=== PATIENT | male | born 1955 | race Caucasian/White ===

== ENCOUNTER 2020-08-21 00:41 | Outpatient (CLI) | payer BC, SELFPAY ==
[2020-08-21 18:51] LABS: SARS-CoV-2 RNA PCR Negative
== END 2020-08-21 00:42 | disposition home or self-care (01) ==
LOC: ANHCOVIDDT 00:41
PROVIDERS: PCP Internal Medicine; Visit Provider Internal Medicine Gastroenterology
DX: Z01.812 Encounter for preprocedural laboratory examination (principal); Z20.828 Contact with and (suspected) exposure to other viral communicable diseases
CPT/HCPCS: 87635; C9803; U0003

== ENCOUNTER 2020-08-24 01:18 | Day surgery (SDC) | payer BC, SELFPAY ==
[2020-08-16 10:50] VITALS: BMI 35.4
[2020-08-24 07:58] VITALS: BP 170/89; PULSE 71; RESP 22; TEMP 36.7; O2SAT 97
[2020-08-24] MEDS: LACTATED RINGERS 1,000 ML 150 ML IV CONT (08:12)
--- NOTE | 2020-08-24 08:34 | WPDGICN ---
Assessment and Plan Assessment and plan (1) History of colon polyps: Code(s): Z86.010 - Personal history of colonic polyps Status: Acute Assessment and Plan: Patient has a history of colon polyps in the past. Most recent exam in 2014 was unremarkable. Plan is for surveillance colonoscopy at this time. GI Consult Note Consult date/time: 08/24/20 08:34 HPI: Juan Carlos Jules is a 65 year old male Presents for follow-up colonoscopy. Patient has a history of colon polyps in the past. patient reports his current weight appetite bowel movements are normal. He denies abdominal pain. He has had no bleeding. Family history is significant for several family members with colon polyps. Review of Systems Review of Systems: All systems reviewed & are unremarkable except as noted in HPI and below PMFSH Social History Social History Smoking status: Never smoker Alcohol intake: current Substance use: never Substance use type: does not use Living arrangements: with family Spiritual care concerns: No Meds Home Medications and Allergies Home Medications Medication Instructions Recorded Confirmed Type ascorbic acid (vitamin C) 1 g PO DAILY 08/16/20 08/16/20 History carvedilol 25 mg PO BID 08/16/20 08/16/20 History coQ10 (ubiquinol) 200 mg PO DAILY 08/16/20 08/16/20 History furosemide 40 mg PO DAILY 08/16/20 08/16/20 History lisinopril 20 mg PO DAILY 08/16/20 08/16/20 History magnesium 200 mg PO DAILY 08/16/20 08/16/20 History minoxidil 10 mg PO DAILY 08/16/20 08/16/20 History pravastatin 40 mg PO HS 08/16/20 08/16/20 History psyllium husk [Metamucil] 1 g PO DAILY 08/16/20 08/16/20 History sertraline 50 mg PO DAILY 08/16/20 08/16/20 History zinc gluconate [Zinc-50] 50 mg PO DAILY 08/16/20 08/16/20 History Allergies Allergy/AdvReac Type Severity Reaction Status Date / Time No Known Allergies Allergy Verified 08/24/20 07:56 Vital Signs Vital Signs - 24 hr 08/24/20 07:58 Temperature 98.0 F Pulse Rate 71 Respiratory Rate 22 H Blood Pressure 170/89 H Pulse Oximetry 97 Exam Narrative: Exam Narrative: Physical exam reveals patient be alert. Vital signs stable. HEENT exam unremarkable. Lungs are clear to auscultation and percussion. Heart is without murmur or extra sounds. Abdominal exam bowel sounds are present soft nontender with no organomegaly. Digital external rectal exam is normal.
--- NOTE | 2020-08-24 09:00 | WPDANESEPPF ---
Anes - Initial Pre Proc Eval Procedure: Operation Date: 08/24/20 09:00 Proposed Procedures p Screening Colonoscopy - Hawk Rzivi MD Date/Time: 08/24/20 09:00 Surgeon: Hawk Rizvi MD Pre Op Diagnosis: Neoplasm Screening,Hx Of Colon Polyps Patient Data Age: 65 Gender: M Height: 5 ft 9 in Weight: 105.8 kg Last Vital Signs Temp 98.0 F 08/24/20 07:58 Pulse 71 08/24/20 07:58 Resp 22 H 08/24/20 07:58 BP 170/89 H 08/24/20 07:58 Pulse Ox 97 08/24/20 07:58 Allergies Allergy/AdvReac Type Severity Reaction Status Date / Time No Known Allergies Allergy Verified 08/24/20 07:56 Home Medications Medication Instructions Recorded Confirmed Type ascorbic acid (vitamin C) 1 g PO DAILY 08/16/20 08/16/20 History carvedilol 25 mg PO BID 08/16/20 08/16/20 History coQ10 (ubiquinol) 200 mg PO DAILY 08/16/20 08/16/20 History furosemide 40 mg PO DAILY 08/16/20 08/16/20 History lisinopril 20 mg PO DAILY 08/16/20 08/16/20 History magnesium 200 mg PO DAILY 08/16/20 08/16/20 History minoxidil 10 mg PO DAILY 08/16/20 08/16/20 History pravastatin 40 mg PO HS 08/16/20 08/16/20 History psyllium husk [Metamucil] 1 g PO DAILY 08/16/20 08/16/20 History sertraline 50 mg PO DAILY 08/16/20 08/16/20 History zinc gluconate [Zinc-50] 50 mg PO DAILY 08/16/20 08/16/20 History Patient hx anesthesia problems: none Family hx anesthesia problems: none PMFSH Past Medical History Medical History (Updated 08/24/20 @ 08:59 by Isreal Resendiz MD) Depression Hyperlipidemia Hypertension Social History Social History Smoking status: Never smoker Alcohol intake: current Substance use: never Substance use type: does not use Living arrangements: with family Spiritual care concerns: No Anes - Eval Final PreProcedure Day of Procedure 08/24/20 09:00 Patient weight: obese Heart: regular rate and rhythm Lungs: clear to auscultation Airway: Mallampati scale class II Neurological: alert and oriented Last oral intake: >/= 8 hours ASA classification: III Emergent: no Anesthetic plan: proceed Anesthesia type and monitoring: general GIVS and standard monitoring Informed Consent: The patient's anesthetic plan and its attendant risks and benefits were discussed with the patient/family/POA. Questions were solicited and answers provided to the satisfaction of the patient/family/POA.
[2020-08-24 09:35] VITALS: BP 125/84; PULSE 77; RESP 21; O2SAT 93
[2020-08-24 09:45] VITALS: BP 138/85; PULSE 81; RESP 21; O2SAT 96
[2020-08-24 09:55] VITALS: BP 140/93; PULSE 76; RESP 24; O2SAT 96
== END 2020-08-24 10:05 | disposition home or self-care (01) ==
PROVIDERS: PCP Internal Medicine; Visit Provider Internal Medicine Gastroenterology
PROC: 0DJD8ZZ Inspection of Lower Intestinal Tract, Via Natural or Artificial Opening Endoscopic (ICD-10-PCS; CPT 45378; principal; 2020-08-24 09:00)
DX: Z12.11 Encounter for screening for malignant neoplasm of colon (principal); Z86.010 Personal history of colon polyps; K64.8 Other hemorrhoids; K57.30 Diverticulosis of large intestine without perforation or abscess without bleeding; F32.9 Major depressive disorder, single episode, unspecified; E78.5 Hyperlipidemia, unspecified; I10 Essential (primary) hypertension; E66.9 Obesity, unspecified; Z68.34 Body mass index [BMI] 34.0-34.9, adult
CPT/HCPCS: 45378; J2704; J7120